=== PATIENT | male | born 1965 | race Two or more races ===

== ENCOUNTER 2019-11-19 19:31 | Outpatient (REF) | payer MEDICAID, SELFPAY | END 2019-11-19 19:32 | disposition home or self-care (01) | LOC: HO.MRI 19:31 | PROVIDERS: Visit Provider Emergency Medicine | DX: M48.061 Spinal stenosis, lumbar region without neurogenic claudication (principal) ==

== ENCOUNTER → 2021-02-15 15:00 | Outpatient (BNVA) | payer MEDICAID, SELFPAY | PROVIDERS: PCP Nurse Practitioner Family; Referring Provider Nurse Practitioner Family; Visit Provider Surgery | DX: K40.90 Unilateral inguinal hernia, without obstruction or gangrene, not specified as recurrent (principal) | CPT/HCPCS: 99202 ==

== ENCOUNTER 2021-02-24 | Outpatient (REF) | payer MEDICAID, SELFPAY ==
--- NOTE | ~2021-02-24 | CT_ITS ---
EXAMINATION: CT CHEST SCREENING CLINICAL INFORMATION: Nicotine dependence. COMPARISON: None. TECHNIQUE: Multidetector volumetric CT imaging of the chest is performed without contrast using low dose technique. Additional 2-D coronal and sagittal reformatted images and axial 3-D maximum intensity projection (MIP) images are generated on the CT workstation. This CT examination was performed using dose optimization techniques as appropriate, variously including the following: *Automated exposure control *Adjustment of mA and/or kV according to patient size (this includes techniques or standardized protocols for targeted exams where dose is matched to indication/reason for exam; i.e. extremities or head) *Use of iterative reconstruction technique DLP: 60 mGy-cm FINDINGS: LUNGS: The lungs are well expanded and clear of acute pneumonic consolidation. A 1 mm pulmonary nodule is seen in the left lower lobe axial image 315/6 in the lingula axial image 286/6. No additional pulmonary nodules, mass or ground-glass density. MEDIASTINUM: The thyroid lobes are symmetric and normal. The central trachea and bronchi are widely patent. Heart size and the great vessels are normal caliber. No abnormal sized mediastinal or hilar lymph nodes seen. There is no pericardial effusion. PLEURA: There is no pleural effusion. No pleural mass or thickening. AXILLA: No lymphadenopathy. UPPER ABDOMEN: Unremarkable. OSSEOUS STRUCTURES: No lytic or sclerotic process seen. There is mild ventral spondylosis. CT/CT lung screening IMPRESSION: Punctate 1-2 nodules.. ASSESSMENT: Lung-RADS category 2: Benign RECOMMENDATION: Low-dose annual CT chest
== END 2021-02-24 00:01 ==
LOC: HO.CT
PROVIDERS: PCP Nurse Practitioner Family; Visit Provider Physician Assistant Medical
DX: F17.210 Nicotine dependence, cigarettes, uncomplicated (principal)
CPT/HCPCS: 71271; G0296

== ENCOUNTER 2021-03-14 10:19 | Day surgery (SDC) | payer MEDICAID, SELFPAY ==
[2021-03-08 15:41] VITALS: BMI 20.7
--- NOTE | 2021-03-13 10:00 | P.CONAN_ITS ---
Documented by User: Luisa Vail NP 03/13/21 10:21 HPI - Anesthesia Eval Consult details Narrative: 55yo M for Left Hernia Repair Inguinal with mesh PMFSH Active Problems Active Problems: All Active Problems (Updated 02/24/21 @ 13:18 by Sravanthi Feldman PA-C) Personal history of nicotine dependence (Acute) Left inguinal hernia (Acute) Chronic back pain (Acute) Past Medical History Medical History (Updated 03/14/21 @ 10:28 by Sarika Rodas) Benign neoplasm of left kidney Chronic back pain Depression History of COVID-19 (~02/2020) History of substance abuse History of type C viral hepatitis Left inguinal hernia Personal history of nicotine dependence Seizure disorder Superior mesenteric artery stenosis Thrombocytopenia Tubular adenoma of colon (~2017) Surgical History Surgical History (Updated 02/24/21 @ 13:07 by Sravanthi Feldman PA-C) History of cholecystectomy (~2000) History of colonoscopy (~2017) History of esophagogastroduodenoscopy (EGD) (~2017) History of excision of pilonidal cyst (~2006) History of liver biopsy (~2000) History of lumbar discectomy (~2007) History of throat surgery (~1998) Social History Social History (Updated 02/24/21 @ 13:17 by Sravanthi Feldman PA-C) Alcohol intake: current Alcohol intake frequency: does not drink Patient Tobacco Use Status: Current everyday Tobacco user Tobacco use type: Cigarette Cigarettes Per Day: 10 Years Smoked: 40 Smoked in Last 30 Days: Yes Use of substances other than those prescribed or required for medical reasons: No Substance Use Type: Marijuana Are you DNR?: No Advance Directives: Yes Advance Directives on File: Yes Advance Directives Date on File: 11/13/19 Meds Allergies Allergy/AdvReac Type Severity Reaction Status Date / Time lithium [[place]] Allergy Severe RASH, Verified 03/14/21 10:27 ANAPHYLAXIS, swelling, peeling skin, scabs Interferon, Allergy Intermediate swelling, Verified 03/14/21 10:27 patient not sure o peeling skin nabumetone Allergy Intermediate swelling, Verified 03/14/21 10:27 peeling skin Interferons Allergy Mild SWELLING Verified 03/14/21 10:27 naproxen Allergy Mild confusion, Verified 03/14/21 10:27 [Naproxen] swelling, peeling skin Home Medications Medication Instructions Recorded Confirmed Last Taken Type divalproex 500 mg 500 mg PO 02/15/21 03/08/21 Unknown History tablet,extended BEDTIME release 24 hr doxepin 100 mg 100 mg PO 02/15/21 03/08/21 Unknown History capsule BEDTIME gabapentin 100 mg 200 mg PO TID 02/15/21 03/08/21 Unknown History capsule trazodone 150 mg 150 mg PO 02/15/21 03/08/21 Unknown History tablet BEDTIME Exam Exam Date and Time: March 13, 2021 1000 Height,Weight and Vital Signs: Height 6 ft 1 in Weight 71.214 kg Assessment and Plan Assessment Anesthesia Assessment: Chart Reviewed Documented by User: Carlos Frost 03/14/21 12:10 HPI - Anesthesia Eval Consult details Narrative: 55yo M for Left Hernia Repair Inguinal with mesh CAD s/p stent seizures , last seizure years ago . tingling and numbness b/l Lower extremites hep C . s/p treatment . [facility] Past Medical History Medical History (Updated 03/14/21 @ 10:28 by Sarika Rodas) Benign neoplasm of left kidney Chronic back pain Depression History of COVID-19 (~02/2020) History of substance abuse History of type C viral hepatitis Left inguinal hernia Personal history of nicotine dependence Seizure disorder Superior mesenteric artery stenosis Thrombocytopenia Tubular adenoma of colon (~2017) Family History Family history of problems with anesthesia: No Surgical History Surgical History (Updated 02/24/21 @ 13:07 by Sravanthi Feldman PA-C) History of cholecystectomy (~2000) History of colonoscopy (~2017) History of esophagogastroduodenoscopy (EGD) (~2017) History of excision of pilonidal cyst (~2006) History of liver biopsy (~2000) History of lumbar discectomy (~2007) History of throat surgery (~1998) History of Problems with Anesthesia: No Social History Social History (Updated 02/24/21 @ 13:17 by Sravanthi Feldman PA-C) Alcohol intake: current Alcohol intake frequency: does not drink Patient Tobacco Use Status: Current everyday Tobacco user Tobacco use type: Cigarette Cigarettes Per Day: 10 Years Smoked: 40 Smoked in Last 30 Days: Yes Use of substances other than those prescribed or required for medical reasons: No Substance Use Type: Marijuana Are you DNR?: No Advance Directives: Yes Advance Directives on File: Yes Advance Directives Date on File: 11/13/19 Meds Allergies Allergy/AdvReac Type Severity Reaction Status Date / Time lithium [[place]] Allergy Severe RASH, Verified 03/14/21 10:27 ANAPHYLAXIS, swelling, peeling skin, scabs Interferon, Allergy Intermediate swelling, Verified 03/14/21 10:27 patient not sure o peeling skin nabumetone Allergy Intermediate swelling, Verified 03/14/21 10:27 peeling skin Interferons Allergy Mild SWELLING Verified 03/14/21 10:27 naproxen Allergy Mild confusion, Verified 03/14/21 10:27 [Naproxen] swelling, peeling skin Home Medications Medication Instructions Recorded Confirmed Last Taken Type divalproex 500 mg 500 mg PO 02/15/21 03/08/21 Unknown History tablet,extended BEDTIME release 24 hr doxepin 100 mg 100 mg PO 02/15/21 03/08/21 Unknown History capsule BEDTIME gabapentin 100 mg 200 mg PO TID 02/15/21 03/08/21 Unknown History capsule trazodone 150 mg 150 mg PO 02/15/21 03/08/21 Unknown History tablet BEDTIME Exam Airway Mallampati Class: III TM Dist: >3cm Partial: Upper and Lower Loose/Missing/Broken Teeth: Yes (Poor dentation ) Heart: rrr Lungs: bl breath Assessment and Plan Assessment Anesthesia Assessment: Anesthesia Plan Discussed Final Anesthetic Review Family History of Problems with Anesthesia: No History of Problems with Anesthesia: No NPO: Yes ASA Class: III Final Preanesthetic Review: Meds/Allgs Chart Reviewed, Consent Obtained/Reviewed and Anes Risks/Benef Reviewed Patient Risk: Intermediate Procedure Risk: Intermediate Anesthetic Plan Anesthetic Plan: GA Disposition: Standard PACU
[2021-03-14] VITALS (17 sets, daily range): BP systolic 118–138; BP diastolic 51–68; PULSE 64–72; RESP 15–18; TEMP 36.2–36.6; O2SAT 98–100; BMI 21.1
[2021-03-14] MEDS: Lactated Ringers 1,000 ML 100 ML IVCONT (10:53)
--- NOTE | 2021-03-14 11:36 | MHC.SHP ---
Pre-Procedural Eval Section A Date of Service: 03/14/21 The patient is an INPATIENT: No Changes since office visit: No Cold of Flu in the past 2 weeks, No New Medical Problems, No Changes in Medication and No Patient answered all questions The History & Physical has been completed within 30 days and I have reviewed it.: Yes Section B Chief Complaint: inguinal hernia Allergies: Allergies Allergy/AdvReac Type Severity Reaction Status Date / Time lithium [[place]] Allergy Severe RASH, Verified 03/14/21 10:27 ANAPHYLAXIS, swelling, peeling skin, scabs Interferon, patient not sure Allergy Intermediate swelling, Verified 03/14/21 10:27 o peeling skin nabumetone Allergy Intermediate swelling, Verified 03/14/21 10:27 peeling skin Interferons Allergy Mild SWELLING Verified 03/14/21 10:27 naproxen [Naproxen] Allergy Mild confusion, Verified 03/14/21 10:27 swelling, peeling skin Plan I have reviewed the history and physical and performed a pertinent physical examination on my patient. No changes have occurred unless specified.
--- NOTE | 2021-03-14 13:03 | W.PM.OPN ---
Operative Note Operative Note Date of Service: 03/14/21 Narrative: Preop diagnosis: Left inguinal hernia Postop diagnosis: Left inguinal hernia indirect Procedure: Repair of a left inguinal hernia with mesh Surgeon: Tucker Duarte MD curriculum assistant principal: JESSICA Bower The patient is a 55-year-old male with a reducible mass on the left groin consistent with an inguinal hernia. In view of symptoms he wanted to proceed with repair. He understood the technique of repair with mesh. He was aware of the risks, benefits, and alternatives and had given consent He was brought to the operating room placed supine on table under anesthesia via laryngeal mask airway. The left groin area was prepped and draped in the usual sterile fashion. A surgical time-out was done. The patient received cefazolin 2 g IV preoperatively. I infiltrated the planned line of incision with lidocaine 1%. I made a short incision in the skin along an imaginary line from the anterior superior iliac spine to the pubic ramus using blade 15. This was carried down through the full-thickness of the skin and subcutaneous fat using electrocautery down to the external oblique aponeurosis. I bluntly dissected the external oblique aponeurosis to define the external ring. I made an incision on the external oblique aponeurosis to enter the canal. I applied hemostats to the vide edges of the aponeurosis. I bluntly dissected the underside of the aponeurosis to create a pocket for the mesh. I then proceeded to bluntly dissect the spermatic cord and its contents using my index finger until I was able to pass a Zev drain around this. This Zev drain was used for retraction. If I the vas deferens and the accompanying vessels and this were protected during the rest of the dissection By dissecting the cord, I was able to identify the hernia sac. This was from the rest of the cord contents down through the defect which was through the internal ring. This was therefore an indirect hernia I was able to reduce the hernia completely. I reinforced this internal ring with a small-sized Bard PerFix plug. The plug was secured with Prolene 2-0 sutures to shelving edge of the inguinal meant laterally, and the internal oblique superiorly and medially using the inner leaves of the mesh. I also reinforced the floor of the canal with a keyhole mesh. The tails of the mesh were passed around the cord the level of the internal ring and were together with Prolene 2 sutures. I flattened the mesh on the floor. I secured this to the internal oblique superiorly and medially, the shelving edge of the inguinal ligament laterally, and the pubic ramus inferomedially. I then irrigated. I observed for hemostasis. Once hemostasis was ensured, I proceeded then appose the subcutaneous layer with Dexon 3-0 interrupted sutures. Skin closure was achieved with Dexon 4-0 subcuticular running stitch. The area was infiltrated with Marcaine 0.5% for postop analgesia. Steri-Strips and dressings were applied. The procedure was then completed The patient tolerated the procedure well. There were no complications noted. Initial and final counts of sponges and instruments were correct. Estimated blood loss was about 5 cc. The patient was extubated without difficulty and transferred to the recovery room with stable vital signs.
[2021-03-14] MEDS: HYDROmorphone HCl 0.5 MG/0.5 ML SYRINGE 0.25 MG IVPUSH ×4 (13:37→14:15)
[2021-03-14] MEDS: oxyCODONE HCl Immed Release 5 MG TABLET 10 MG PO (14:49)
== END 2021-03-14 15:40 | disposition home or self-care (01) ==
PROVIDERS: PCP Nurse Practitioner Family; Visit Provider Surgery
PROC: (CPT 49505; principal; 2021-03-14 11:10)
DX: K40.90 Unilateral inguinal hernia, without obstruction or gangrene, not specified as recurrent (principal); M54.9 Dorsalgia, unspecified; G89.29 Other chronic pain; K55.1 Chronic vascular disorders of intestine; G40.909 Epilepsy, unspecified, not intractable, without status epilepticus; D69.6 Thrombocytopenia, unspecified; Z79.899 Other long term (current) drug therapy; Z88.8 Allergy status to other drugs, medicaments and biological substances; F17.210 Nicotine dependence, cigarettes, uncomplicated
CPT/HCPCS: 49505; C1781; J0131; J0690; J1100; J1170; J2250; J2370; J2405; J3010

== ENCOUNTER → 2021-04-10 11:03 | Outpatient (BNVA) | payer MEDICAID, SELFPAY | PROVIDERS: PCP Nurse Practitioner Family; Referring Provider Nurse Practitioner Family; Visit Provider Surgery | DX: Z48.815 Encounter for surgical aftercare following surgery on the digestive system (principal); Z87.19 Personal history of other diseases of the digestive system | CPT/HCPCS: 99212 ==

== ENCOUNTER 2021-04-20 09:13 | Outpatient (REF) | payer MEDICAID, SELFPAY ==
--- NOTE | ~2021-04-20 | US_ITS ---
EXAMINATION: US COMPLETE ABDOMEN WITH LIVER ELASTOGRAPHY CLINICAL INFORMATION: Chronic hepatitis C. Liver fibrosis. COMPARISON: 09/09/2018 TECHNIQUE: Real-time imaging of the abdominal viscera. Noninvasive ultrasound liver fibrosis assessment is performed using Alec ElastPQ point quantification shear wave elastography (2D-SWE) with a C5-2 MHz transducer. Multiple elastography samples are obtained. FINDINGS: PANCREAS: Normal. ABDOMINAL AORTA: The proximal, middle, and distal aortic segments are normal in caliber. INFERIOR VENA CAVA: Visualized portions are normal. LIVER: The liver demonstrates normal size and Contour with increased echogenicity. No focal lesion or intrahepatic biliary duct dilatation. The right lobe measures 13.1 cm in length. The left lobe measures 8.9 cm in length. Portal flow is towards the liver (hepatopetal). Shear wave liver elastography median stiffness is 1.52 m/s (reference: normal median stiffness is 1.3 m/s or less). IQR/median stiffness to assess sampling precision is 0.05 (reference: good quality data set is IQR/median stiffness of 0.15 or less). GALLBLADDER: Cholecystectomy. COMMON BILE DUCT: Normal in caliber measuring 0.5 cm in diameter. RIGHT KIDNEY: Midpole 1 cm simple cyst. There is a 1.3 cm midpole complex cyst with septation and irregular Contour. No Doppler vascularity.. No hydronephrosis. No renal calculi. The kidney measures 11.3 cm in maximum dimension. LEFT KIDNEY: Normal. No hydronephrosis. No renal calculi or focal parenchymal lesions. The kidney measures 12.8 cm in maximum dimension. SPLEEN: Normal. The spleen measures 11.1 cm in maximum dimension. FREE FLUID: None. US/US abdomen comp w elastography IMPRESSION: 1. Hepatic steatosis. 2. Liver elastography: In the absence of other known clinical signs, measurements rule out compensated advanced chronic liver disease. If there are known clinical signs, further testing may be needed for confirmation. 3. Complex 1.3 cm right renal cyst. This is not seen on previous. With the appearance this is likely Bosniak 2F. REFERENCE: Society of Radiologists in Ultrasound Liver Stiffness Thresholds (2020): LIVER STIFFNESS THRESHOLDS: *Liver Stiffness equal or less than 1.3 m/s: High probability of being normal. *Liver Stiffness less than 1.7 m/s: In the absence of other known clinical signs, rules out compensated advanced chronic liver disease. *Liver Stiffness 1.7-2.1 m/s: Suggestive of compensated advanced chronic liver disease but need further test for confirmation. *Liver Stiffness over 2.1 m/s: Rules in compensated advanced chronic liver disease. *Liver Stiffness over 2.4 m/s: Suggestive of clinically significant portal hypertension. QUALITY OF DATA SET: *IQR/Median value equal or less than 0.15 implies a quality data set. *IQR/Median value over 0.15 implies a poor quality data set. SIGNIFICANT CHANGE FROM PRIOR EXAM: Significant change if liver stiffness measurement is 10% or greater from prior exam. OTHER CONSIDERATIONS: The stage of liver fibrosis may be overestimated in the setting of acute hepatitis, liver inflammation, elevated liver function tests, hepatic vascular congestion, obstructive cholestasis, non-fasting state, and infiltrative diseases such as amyloidosis and lymphoma. In some patients with NAFLD, the liver stiffness thresholds for compensated advanced chronic liver disease may be lower. In causes other than viral hepatitis and NAFLD, liver stiffness thresholds are not well established.
[2021-04-20 10:17] LABS: MANUAL DIFF FLAG NO
[2021-04-20 10:33] LABS: Basophils Percent Auto 0.2 % (0-2); Hemoglobin 13.9 g/dl (14.0-18.0); Imm Gran Abs Auto 0.04 X10*3/uL (0.00-0.03); Imm Gran Pct Auto 0.8 % (0.0-0.4); Mean Corpuscular HGB Conc 33.1 g/dl (31.0-36.0); Mean Corpuscular Hemoglobin 32.2 pg (27.0-33.0); Mean Corpuscular Volume 97.2 fL (80.0-98.0); Mean Platelet Volume 9.3 fL (9.4-12.4); Monocytes Absolute Auto 0.5 X10*3/uL (0.1-1.2); Monocytes Percent Auto 8.5 % (2-11); Neutrophils Absolute Auto 2.8 x10*3/uL (2.0-8.3); Neutrophils Percent Auto 52.5 % (45-73); Platelet Count 109 X10*3/uL (160-400); Red Blood Count 4.32 X10*6/uL (4.60-5.80); Red Cell Distribution Width 12.7 % (11.0-16.0); White Blood Count 5.3 X10*3/uL (4.8-10.8)
[2021-04-20 10:37] LABS: INTERNATIONAL NORM RATIO 1.1 (0.9-1.1)
[2021-04-20 11:19] LABS: Alanine Aminotransferase 13 U/L (0-40); Albumin Level 4.5 g/dL (3.5-5.0); Alkaline Phosphatase 60 U/L (39-117); Aspartate Amino Transferase 18 U/L (5-37); Bilirubin Direct 0.3 mg/dL (0.0-0.5); Bilirubin Total 0.7 mg/dL (0.0-1.0); Total Protein 7.3 g/dL (6.5-8.0)
[2021-04-24 20:21] LABS: HCV Log PCR <1.18 NOT DETECTED Log IU/mL (NOT DETECTED); HepC Viral Load <15 NOT DETECTED IU/mL (NOT DETECTED)
[2021-04-25 13:26] LABS: Alpha Fetoprotein 1.9 ng/mL (<6.1)
[2021-04-25 15:22] LABS: FIB-ALT 12 U/L (9-46); FIB-Alpha-2-Macroglobulin 448 mg/dL (106-279); FIB-Apolipoprotein A1 157 mg/dL (94-176); FIB-GGT 29 U/L (3-85); FIB-Haptoglobin 79 mg/dL (43-212); FIB-Total Bilirubin 0.6 mg/dL (0.2-1.2); Liver Fibrosis Score 0.68; Liver Fibrosis Stage F3; Nec Inflam Act Grade A0; Nec Inflam Act Score 0.06
== END 2021-04-20 09:14 | disposition home or self-care (01) ==
LOC: HO.US 09:13
PROVIDERS: PCP Nurse Practitioner Family; Visit Provider Internal Medicine
DX: B18.2 Chronic viral hepatitis C (principal); K74.00 Hepatic fibrosis, unspecified
CPT/HCPCS: 36415; 76705; 76981; 80076; 81596; 82105; 85025; 85610; 87522

== ENCOUNTER 2021-05-19 07:46 | Day surgery (SDC) | payer MEDICAID, SELFPAY ==
[2021-04-21 13:47] VITALS: BMI 21.1
--- NOTE | 2021-05-18 11:57 | HO.ANESPROP2 ---
Documented by User: Luisa Vail NP 05/18/21 11:59 HPI - Anesthesia Eval Consult details Narrative: 56yo M for Colonoscopy s/p ing hernia repair 03/2021 with GA-LMA 5 PMFSH Active Problems Active Problems: All Active Problems (Updated 04/21/21 @ 13:50 by Claudia Hopkins, RN) Personal history of nicotine dependence (Acute) Left inguinal hernia (Acute) Chronic back pain (Acute) Past Medical History Medical History (Updated 04/21/21 @ 13:50 by Claudia Hopkins, RN) Benign neoplasm of left kidney Chronic back pain Depression History of COVID-19 (~02/2020) History of substance abuse History of type C viral hepatitis Left inguinal hernia Personal history of nicotine dependence Seizure disorder Superior mesenteric artery stenosis Thrombocytopenia Tubular adenoma of colon (~2017) Family History Family history of problems with anesthesia: No Surgical History Surgical History History of cholecystectomy (~2000) History of colonoscopy (~2017) History of coronary artery stent placement History of esophagogastroduodenoscopy (EGD) (~2017) History of excision of pilonidal cyst (~2006) History of left inguinal hernia repair (~03/14/21) History of liver biopsy (~2000) History of lumbar discectomy (~2007) History of throat surgery (~1998) History of Problems with Anesthesia: No Social History Social History Alcohol intake: current Alcohol intake frequency: does not drink Patient Tobacco Use Status: Current everyday Tobacco user Tobacco use type: Cigarette Cigarettes Per Day: 6 Years Smoked: 40+ Use of substances other than those prescribed or required for medical reasons: Yes Substance Use Type: Marijuana Substance Use Frequency: Daily Are you DNR?: No Advance Directives: Yes Advance Directives Information Provided: Yes Advance Directives on File: Yes Advance Directives Date on File: 11/13/19 Meds Allergies Allergy/AdvReac Type Severity Reaction Status Date / Time lithium [[place]] Allergy Severe RASH, Verified 04/10/21 11:19 ANAPHYLAXIS, swelling, peeling skin, scabs Interferon, patient not sure Allergy Intermediate swelling, Verified 04/10/21 11:19 o peeling skin nabumetone Allergy Intermediate swelling, Verified 04/10/21 11:19 peeling skin Interferons Allergy Mild SWELLING Verified 04/10/21 11:19 naproxen [Naproxen] Allergy Mild confusion, Verified 04/10/21 11:19 swelling, peeling skin Home Medications Medication Instructions Recorded Confirmed Last Taken Type divalproex 500 mg tablet,extended 500 mg PO BEDTIME 02/15/21 04/21/21 Unknown History release 24 hr doxepin 100 mg capsule 100 mg PO BEDTIME 02/15/21 04/21/21 Unknown History gabapentin 100 mg capsule 200 mg PO TID 02/15/21 04/21/21 Unknown History trazodone 150 mg tablet 150 mg PO BEDTIME 02/15/21 04/21/21 Unknown History Exam Exam Date and Time: May 18, 2021 1157 Height,Weight and Vital Signs: Height 6 ft 1 in Weight 72.575 kg Narrative Narrative: Laboratory Tests 04/20/21 10:16 WBC 5.3 Hgb 13.9 L Hct 42.0 Plt Count 109 L Assessment and Plan Assessment Anesthesia Assessment: Chart Reviewed Final Anesthetic Review Family History of Problems with Anesthesia: No History of Problems with Anesthesia: No Documented by User: Carlos Frost MD 05/19/21 10:01 HPI - Anesthesia Eval Consult details Narrative: 56yo M for Colonoscopy s/p hernia repair 03/2021 with GA-LMA 5 CAD s/p stent?, no chest pain currently seizures , last seizure years ago .? tingling and numbness b/l Lower extremites?with chronic back pain . hep C . s/p treatment .? [facility] Past Medical History Medical History (Updated 04/21/21 @ 13:50 by Claudia Hopkins RN) Benign neoplasm of left kidney Chronic back pain Depression History of COVID-19 (~02/2020) History of substance abuse History of type C viral hepatitis Left inguinal hernia Personal history of nicotine dependence Seizure disorder Superior mesenteric artery stenosis Thrombocytopenia Tubular adenoma of colon (~2017) Surgical History Surgical History History of cholecystectomy (~2000) History of colonoscopy (~2017) History of coronary artery stent placement History of esophagogastroduodenoscopy (EGD) (~2017) History of excision of pilonidal cyst (~2006) History of left inguinal hernia repair (~03/14/21) History of liver biopsy (~2000) History of lumbar discectomy (~2007) History of throat surgery (~1998) Social History Social History Alcohol intake: current Alcohol intake frequency: does not drink Patient Tobacco Use Status: Current everyday Tobacco user Tobacco use type: Cigarette Cigarettes Per Day: 6 Years Smoked: 40+ Use of substances other than those prescribed or required for medical reasons: Yes Substance Use Type: Marijuana Substance Use Frequency: Daily Are you DNR?: No Advance Directives: Yes Advance Directives Information Provided: Yes Advance Directives on File: Yes Advance Directives Date on File: 11/13/19 Meds Allergies Allergy/AdvReac Type Severity Reaction Status Date / Time lithium [[place]] Allergy Severe RASH, Verified 04/10/21 11:19 ANAPHYLAXIS, swelling, peeling skin, scabs Interferon, patient not sure Allergy Intermediate swelling, Verified 04/10/21 11:19 o peeling skin nabumetone Allergy Intermediate swelling, Verified 04/10/21 11:19 peeling skin Interferons Allergy Mild SWELLING Verified 04/10/21 11:19 naproxen [Naproxen] Allergy Mild confusion, Verified 04/10/21 11:19 swelling, peeling skin Home Medications Medication Instructions Recorded Confirmed Last Taken Type divalproex 500 mg tablet,extended 500 mg PO BEDTIME 02/15/21 04/21/21 Unknown History release 24 hr doxepin 100 mg capsule 100 mg PO BEDTIME 02/15/21 04/21/21 Unknown History gabapentin 100 mg capsule 200 mg PO TID 02/15/21 04/21/21 Unknown History trazodone 150 mg tablet 150 mg PO BEDTIME 02/15/21 04/21/21 Unknown History Exam Airway Mallampati Class: II TM Dist: >3cm Neck ROM: Full Denture: Upper and Lower Loose/Missing/Broken Teeth: Yes Heart: RRR Lungs: b/l breath sounds Assessment and Plan Assessment Anesthesia Assessment: Anesthesia Plan Discussed Final Anesthetic Review NPO: Yes ASA Class: II Final Preanesthetic Review: Meds/Allgs Chart Reviewed, Consent Obtained/Reviewed and Anes Risks/Benef Reviewed Patient Risk: Intermediate Procedure Risk: Intermediate Anesthetic Plan Anesthetic Plan: MAC: Disposition: Standard PACU
[2021-05-19 09:02] VITALS: BP 128/57; PULSE 63; RESP 18; TEMP 36.9; O2SAT 98
[2021-05-19] MEDS: Lactated Ringers 1,000 ML 100 ML IVCONT (09:12)
[2021-05-19 10:41] VITALS: BP 98/49; PULSE 60; RESP 16; TEMP 36.1; O2SAT 99
--- NOTE | 2021-05-19 10:44 | P.BOP_ITS ---
Brief Operative Note Date of Service: 05/19/21 Pre-op diagnosis: Screening Post-op diagnosis: other (Colon polyps) Procedure: Colonoscopy to the cecum and TI with cold snare polypectomy of AC polyp, and bx/removal of polyps Surgeon: Mir Sanford Anesthesia: MAC Was an Certified Master Safecracker used for this Procedure?: No Estimated blood loss (mL): 2.0 Pathology: other (A. Transverse colon polyps B. Ascending colon polyps) Condition: stable Disposition: PACU
[2021-05-19 10:56] VITALS: BP 110/53; PULSE 61; RESP 18; TEMP 36.2; O2SAT 98
--- NOTE | 2021-05-19 13:27 | OP_ITS ---
SURGEON: Mir Sanford MD INDICATIONS: The patient presents for evaluation of colorectal cancer screening and personal history of tubular adenoma of the colon. Full consent has been obtained from him for this, including risks of bleeding and perforation. PREOPERATIVE DIAGNOSIS: POSTOPERATIVE DIAGNOSIS: PROCEDURE PERFORMED: Colonoscopy to cecum and terminal ileum with biopsy and removal of polyps, and cold snare polypectomy. ESTIMATED BLOOD LOSS: COMPLICATIONS: ANESTHESIA: Monitored anesthesia care. ASSISTANTS: SPECIMENS: PREOPERATIVE DIAGNOSES: Colorectal cancer screening and personal history of tubular adenoma of the colon. POSTOPERATIVE DIAGNOSES: Colorectal cancer screening and personal history of tubular adenoma of the colon, colon polyps, diverticulosis and internal hemorrhoids. DESCRIPTION OF PROCEDURE: The patient was placed in left lateral decubitus position. The digital rectal exam revealed no abnormalities. The Olympus video pediatric colonoscope was entered into the rectum and advanced easily to the cecum. Once in the cecum, I did identify normal-appearing cecal pouch with appendiceal orifice and a normal-appearing ileocecal valve. The entire appendiceal orifice was well visualized and appeared normal. The terminal ileum was cannulated and appeared normal. The scope was withdrawn back in the colon. The cecum appeared normal. The scope was slowly withdrawn assessing all mucosal surfaces carefully. Preparation was excellent. In the ascending colon was a flat 3 or 4 mm polyp, which was removed with cold biopsy forceps. Also, in the ascending colon was an approximately 6 mm polyp, which was removed by cold snare polypectomy and recovered by suction. The polypectomy site appeared to be free of any residual polyp and no sign of any significant bleeding. In the transverse colon were 2 flat approximately 4 mm polyps, which were each biopsied and completely removed with cold biopsy forceps. I did not visualize any other polyps, colitis, or angiodysplasia. There was a mild amount of sigmoid diverticulosis. In the rectum, scope was retroflexed visualizing internal hemorrhoids, but no other pathology. The rectal mucosa appeared normal. The scope was straightened and withdrawn from the patient. He tolerated the procedure well and was returned to recovery area in stable condition. IMPRESSION: 1. Colon polyps, status post cold snare polypectomy, and biopsy removal. 2. Diverticulosis. 3. Internal hemorrhoids. PLAN: The results of the pathology will be checked. I would recommend a repeat colonoscopy in 5 years for further screening. He was advised to see me in 1 year for followup of the previous history of chronic hepatitis C. He was advised not to use any aspirin and NSAIDs for 1 week. MD HILARIO Fallon/MATILDE / [id number]
== END 2021-05-19 11:30 | disposition home or self-care (01) ==
PROVIDERS: PCP Nurse Practitioner Family; Visit Provider Internal Medicine
PROC: 0DJD8ZZ Inspection of Lower Intestinal Tract, Via Natural or Artificial Opening Endoscopic (ICD-10-PCS; CPT 45378; principal; 2021-05-19 09:10)
DX: Z12.11 Encounter for screening for malignant neoplasm of colon (principal); Z86.010 Personal history of colon polyps; D12.2 Benign neoplasm of ascending colon; D12.3 Benign neoplasm of transverse colon; K57.30 Diverticulosis of large intestine without perforation or abscess without bleeding; K64.8 Other hemorrhoids; K74.00 Hepatic fibrosis, unspecified; B18.2 Chronic viral hepatitis C; G40.909 Epilepsy, unspecified, not intractable, without status epilepticus; Z79.899 Other long term (current) drug therapy; Z90.49 Acquired absence of other specified parts of digestive tract; Z98.890 Other specified postprocedural states; F17.210 Nicotine dependence, cigarettes, uncomplicated
CPT/HCPCS: 45385; 45380; 88305

== ENCOUNTER 2022-03-06 15:30 | Outpatient (REF) | payer MEDICAID, SELFPAY ==
--- NOTE | ~2022-03-06 | CT_ITS ---
EXAMINATION: CT CHEST SCREENING CLINICAL INFORMATION: Nicotine dependence. COMPARISON: CT chest 02/24/2021. TECHNIQUE: Multidetector volumetric CT imaging of the chest is performed without contrast using low dose technique. Additional 2D coronal and sagittal reformatted images and axial 3D maximum intensity projection (MIP) images are generated on the CT workstation. This CT examination was performed using dose optimization techniques as appropriate, variously including the following: *Automated exposure control *Adjustment of mA and/or kV according to patient size (this includes techniques or standardized protocols for targeted exams where dose is matched to indication/reason for exam; i.e. extremities or head) *Use of iterative reconstruction technique DLP: 179 mGy-cm. FINDINGS: LUNGS: The lungs are well expanded without any acute pneumonic consolidation. Besides small tiny nodule in the left lower lobe there are no additional nodules seen. No mass or ground-glass density. No atelectasis. MEDIASTINUM: The mediastinum is normal. CORONARY ARTERY CALCIFICATION: None visualized on this study. PLEURA: There is no pleural effusion. No pleural mass or thickening. AXILLA: No lymphadenopathy. UPPER ABDOMEN: Visualized liver, spleen, pancreas and bilateral adrenal glands are unremarkable. OSSEOUS STRUCTURES: No aggressive lytic or sclerotic process seen. CT/CT lung screening IMPRESSION: Punctate 1 mm nodules without any significant change from previous exam. ASSESSMENT: Lung-RADS category 2: Benign. RECOMMENDATION: Low-dose annual CT chest.
== END 2022-03-06 15:31 | disposition home or self-care (01) ==
LOC: HO.CT 15:30
PROVIDERS: PCP Nurse Practitioner Family; Visit Provider Physician Assistant Medical
DX: Z12.2 Encounter for screening for malignant neoplasm of respiratory organs (principal); F17.210 Nicotine dependence, cigarettes, uncomplicated
CPT/HCPCS: 71271

== ENCOUNTER 2022-03-09 09:28 | Outpatient (REF) | payer MEDICAID, SELFPAY ==
--- NOTE | ~2022-03-09 | XR_ITS ---
EXAMINATION: XR SHOULDER , LEFT CLINICAL INFORMATION: Pain COMPARISON: None available at the time of this dictation. TECHNIQUE: AP external rotation, Grashey, scapular Y, and axillary views of the shoulder. FINDINGS: BONES: There is no fracture or dislocation, no osteolytic or osteoblastic lesion. JOINTS: Glenohumeral joint is properly positioned. There is mild degenerative osteoarthritis of the acromioclavicular joint. SOFT TISSUE AND INCLUDED LUNG: Normal. XR/XR shoulder LT min 2V IMPRESSION: Except for mild DJD of the AC joint, exam is normal.
== END 2022-03-09 09:29 | disposition home or self-care (01) ==
LOC: HO.XRAY 09:28
PROVIDERS: PCP Nurse Practitioner Primary Care; Visit Provider Nurse Practitioner Primary Care
DX: M79.602 Pain in left arm (principal); M25.512 Pain in left shoulder
CPT/HCPCS: 73030

== ENCOUNTER → 2022-07-31 12:27 | Outpatient (BNVA) | payer MEDICAID, SELFPAY | PROVIDERS: PCP Nurse Practitioner Primary Care; Visit Provider Orthopaedic Surgery | DX: M65.331 Trigger finger, right middle finger (principal); R20.0 Anesthesia of skin | CPT/HCPCS: 99202 ==

== ENCOUNTER 2022-08-16 09:25 | Day surgery (SDC) | payer MEDICAID, SELFPAY ==
--- NOTE | 2022-08-16 11:36 | MHC.SHP ---
Pre-Procedural Eval Section A Date of Service: 08/16/22 The patient is an INPATIENT: No Changes since office visit: No Cold of Flu in the past 2 weeks, No New Medical Problems, No Changes in Medication and No Patient answered all questions The History & Physical has been completed within 30 days and I have reviewed it.: Yes Section B Chief Complaint: Trigger finger, right middle finger Allergies: Allergies Allergy/AdvReac Type Severity Reaction Status Date / Time lithium [[place]] Allergy Severe RASH, Verified 07/31/22 12:51 ANAPHYLAXIS, swelling, peeling skin, scabs nabumetone Allergy Intermediate swelling, Verified 07/31/22 12:51 peeling skin Interferons Allergy Mild Swelling, Verified 07/31/22 12:51 peeling skin naproxen [Naproxen] Allergy Mild confusion, Verified 07/31/22 12:51 swelling, peeling skin Plan I have reviewed the history and physical and performed a pertinent physical examination on my patient. No changes have occurred unless specified. Time Spent With Patient Time: Total time managing care of this patient today ____ minutes.
--- NOTE | 2022-08-16 11:37 | W.PM.OPN ---
Operative Note Operative Note Date of Service: 08/16/22 Narrative: Operative Note Preop diagnosis: 1. Right middle finger Trigger finger Postop diagnosis: 1. Right middle finger Trigger finger Procedure: 1. Right little finger A1 tanner release Surgeon: Babita Camacho MD Anesthesia: local block using 1% lidocaine with epinephrine Findings: No locking or catching after A1 tanner release EBL: Less than 5 mL Tourniquet time: None Specimens: None Complications: None Disposition: Brought to recovery room in stable condition Plan: Follow-up for 10-14 days for wound check and suture removal Indications: The patient is 57 years old, with a right middle finger trigger finger that has been unresponsive to nonoperative management. The risks and benefits of operative treatment including but not limited to risk of damage to blood vessels, nerves, tendons, infection, persistent pain, persistent symptoms, recurrence or possible need for additional surgery were discussed with the patient and the patient wishes to proceed with surgery. Procedure: Once consent was obtained a local block was performed in the preop area using a combination of 1% lidocaine with epinephrine. The patient was then brought back to the operating suite and placed on the operative table in supine position. The right upper extremity was prepped and draped in a standard surgical fashion. Once assured that we had a good block, a 1.5 cm oblique incision was made centered over the A1 tanner of the right middle finger . The incision was made through the skin to the subcutaneous tissues using a #15 blade. Careful dissection was made down to the level of the A1 tanner using tenotomy scissors, with care being taken to protect the nearby neurovascular structures. A longitudinal incision was made in the A1 tanner 1st using a #15 blade, then using tenotomy scissors under direct visualization. The A1 tanner was noted to be thickened. Following our A1 tanner release, we no longer saw any locking or catching of the digit with flexion and extension. Once satisfied with our A1 tanner release the wound was copiously irrigated with normal saline and hemostasis was obtained with a brief period of local pressure. The skin edges were reapproximated with some 5.0 nylon suture material and a sterile dressing was applied. The patient appears to have tolerated the procedure well and with no complications. All digits were well vascularized at the conclusion of the case.
[2022-08-16 12:46] VITALS: BP 135/67; PULSE 80; RESP 16; O2SAT 99
== END 2022-08-16 12:47 | disposition home or self-care (01) ==
PROVIDERS: PCP Nurse Practitioner Primary Care; Visit Provider Orthopaedic Surgery
PROC: (CPT 26055; principal; 2022-08-16 11:30)
DX: M65.331 Trigger finger, right middle finger (principal); Z88.8 Allergy status to other drugs, medicaments and biological substances
CPT/HCPCS: 26055; J0171

== ENCOUNTER 2022-08-29 12:03 | Outpatient (AMB) | payer MEDICAID, SELFPAY ==
--- NOTE | 2022-08-29 12:15 | MHC.OFFVIS ---
Intake Intake Visit Reasons: PO R MF Trigger Release 08/16/22 AR Intake Note: Jonathon sadler 57 year old male presents today for a post operative right middle finger trigger release 08/16/22 AR. Sutures removed steris applied. Patient reports that he is doing well with no concerns. His locking and catching is no longer present, he is able to make a fist. Allergies lithium [[place]] Allergy (Severe, Verified 08/29/22 12:18) RASH, ANAPHYLAXIS, swelling, peeling skin, scabs nabumetone Allergy (Intermediate, Verified 08/29/22 12:18) swelling, peeling skin Interferons Allergy (Mild, Verified 08/29/22 12:18) Swelling, peeling skin naproxen [Naproxen] Allergy (Mild, Verified 08/29/22 12:18) confusion, swelling, peeling skin HPI PO R MF Trigger Release 08/16/22 AR HPI Details 57-year-old male who returns to the office today for post-op right middle finger trigger release, 08/16/[address] Camacho. He denies any locking or clicking and he is able to make a fist. He is doing well overall and has no concerns today. [facility] Medical History Benign neoplasm of left kidney Chronic back pain Depression History of COVID-19 (~02/2020) History of substance abuse History of type C viral hepatitis Left inguinal hernia Personal history of nicotine dependence Seizure disorder Superior mesenteric artery stenosis Thrombocytopenia Tubular adenoma of colon (~2017) Surgical History History of cholecystectomy (~2000) History of colonoscopy (~2017) History of coronary artery stent placement History of esophagogastroduodenoscopy (EGD) (~2017) History of excision of pilonidal cyst (~2006) History of left inguinal hernia repair (~03/14/21) History of liver biopsy (~2000) History of lumbar discectomy (~2007) History of throat surgery (~1998) Social History Alcohol intake: current Alcohol intake frequency: does not drink Patient Tobacco Use Status: Current everyday Tobacco user Tobacco use type: Cigarette Cigarettes Per Day: 6 Years Smoked: 40+ Substance Use Type: Marijuana Advance Directives Date on File: 11/13/19 Current occupational status: disabled Current occupation: rt hand Review of Systems Const All systems reviewed & are unremarkable except as noted in HPI and below Physical Exam Extrem Other: Right middle finger: Incision clean, dry and intact. No erythema or swelling. He has no catching or clicking. He can make full fist and fully extend his digits. NVI. Assessment & Plan Assessment & Plan (1) Status post trigger finger release: Code(s): Z98.890 - Other specified postprocedural states Plan Sutures removed today, steri strips applied. He will increase activity as tolerated. I advised caution with heavy lifting for the next 2 weeks. He will also be cautious with washing and not submerging underwater for long periods of time for the next week. If symptoms persist or worsens, patient will contact the office, otherwise follow-up as needed. Patient Instructions: Scribed for Gisela Grover PA-C, by Eddie Aguirre medical van driver, on 08/29/2022 at 12:30 PM EST. I, Gisela Grover PA-C, have personally reviewed and agree with the information entered by the scribe. Coding Level of Care Code Global (37733) Diagnoses Status post trigger finger release Z98.890
== END 2022-08-29 12:42 | disposition home or self-care (01) ==
PROVIDERS: PCP Nurse Practitioner Primary Care; Visit Provider Physician Assistant
DX: M65.331 Trigger finger, right middle finger (principal)
CPT/HCPCS: 99024

== ENCOUNTER → 2022-08-29 12:03 | Outpatient (BNVA) | payer MEDICAID, SELFPAY | PROVIDERS: PCP Nurse Practitioner Primary Care; Visit Provider Physician Assistant ==

== ENCOUNTER 2022-10-11 14:35 | Outpatient (REF) | payer MEDICAID, SELFPAY ==
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
== END 2022-10-11 14:36 | disposition home or self-care (01) ==
LOC: HO.NEURO 14:35
PROVIDERS: PCP Nurse Practitioner Primary Care; Visit Provider Orthopaedic Surgery
DX: Z13.89 Encounter for screening for other disorder (principal)

== ENCOUNTER 2022-10-22 10:07 | Outpatient (REF) | payer MEDICAID, SELFPAY ==
[2022-10-22 11:46] LABS: Basophils Percent Auto 0.2 % (0-2); Mean Platelet Volume 9.4 fL (9.4-12.4); PLT CLUMP 1; Red Cell Distribution Width 12.4 % (11.0-16.0); SCAN SMEAR FLAG 1
[2022-10-22 11:49] LABS: Hemoglobin 13.2 g/dl (14.0-18.0); Imm Gran Abs Auto 0.02 X10*3/uL (0.00-0.03); Imm Gran Pct Auto 0.5 % (0.0-0.4); Lymphocytes Absolute Auto 1.3 X10*3/uL (1.2-4.9); Lymphocytes Percent Auto 30.7 % (20-40); Mean Corpuscular Hemoglobin 31.4 pg (27.0-33.0); Mean Corpuscular Volume 95.2 fL (80.0-98.0); Monocytes Absolute Auto 0.5 X10*3/uL (0.1-1.2); Monocytes Percent Auto 11.1 % (2-11); Neutrophils Absolute Auto 2.5 x10*3/uL (2.0-8.3); Neutrophils Percent Auto 57.5 % (45-73)
[2022-10-22 11:52] LABS: INTERNATIONAL NORM RATIO 0.9 (0.9-1.1); Prothrombin Time 10.8 SEC (11.1-13.3)
[2022-10-22 12:21] LABS: MANUAL DIFF FLAG NO; Platelet Count 119 X10*3/uL (160-400); White Blood Count 4.3 X10*3/uL (4.8-10.8)
[2022-10-22 12:29] LABS: Alanine Aminotransferase 17 U/L (0-40); Albumin Level 3.9 g/dL (3.5-5.0); Alkaline Phosphatase 63 U/L (39-117); Aspartate Amino Transferase 22 U/L (5-37); Bilirubin Direct 0.3 mg/dL (0.0-0.5); Bilirubin Total 0.8 mg/dL (0.0-1.0); Total Protein 6.7 g/dL (6.5-8.0)
[2022-10-24 17:24] LABS: HCV Log PCR <1.18 NOT DETECTED Log IU/mL (NOT DETECTED); HepC Viral Load <15 NOT DETECTED IU/mL (NOT DETECTED)
[2022-10-26 11:49] LABS: Alpha Fetoprotein 2.1 ng/mL (<6.1)
[2022-10-26 16:28] LABS: FIB-ALT 15 U/L (9-46); FIB-Alpha-2-Macroglobulin 455 mg/dL (106-279); FIB-Apolipoprotein A1 171 mg/dL (94-176); FIB-GGT 29 U/L (3-85); FIB-Haptoglobin 82 mg/dL (43-212); FIB-Total Bilirubin 0.7 mg/dL (0.2-1.2); Liver Fibrosis Score 0.68; Liver Fibrosis Stage F3; Nec Inflam Act Grade A0; Nec Inflam Act Score 0.09
== END 2022-10-22 10:08 | disposition home or self-care (01) ==
LOC: HO.HHCL 10:07
PROVIDERS: Visit Provider Internal Medicine
DX: K74.00 Hepatic fibrosis, unspecified (principal); Z86.19 Personal history of other infectious and parasitic diseases
CPT/HCPCS: 36415; 80076; 81596; 82105; 85025; 85610; 87522

== ENCOUNTER 2022-10-30 10:53 | Outpatient (REF) | payer MEDICAID, SELFPAY ==
--- NOTE | ~2022-10-30 | US_ITS ---
EXAMINATION: US COMPLETE ABDOMEN WITH LIVER ELASTOGRAPHY CLINICAL INFORMATION: Liver fibrosis, history of hepatitis C COMPARISON: Abdominal ultrasound 04/20/2021 TECHNIQUE: Real-time imaging of the abdominal viscera. Noninvasive ultrasound liver fibrosis assessment is performed using Alec ElastPQ point quantification shear wave elastography (2D-SWE) with a C5-2 MHz transducer. Multiple elastography samples are obtained. FINDINGS: PANCREAS: Normal body, the head and tail are partly obscured by bowel gas. The pancreatic duct measures 0.3 cm. ABDOMINAL AORTA: The proximal, middle, and distal aortic segments are normal in caliber. INFERIOR VENA CAVA: Visualized portions are normal. LIVER: The parenchyma of the liver is heterogeneous. No focal lesion. Mild dilatation of the intrahepatic bile ducts. The right lobe measures 16.3 cm in length. The left lobe measures 9.8 cm in length. Portal flow is hepatopedal. Shear wave liver elastography median stiffness is 1.47 m/s (reference: normal median stiffness is 1.3 m/s or less). IQR/median stiffness to assess sampling precision is 0.11 (reference: good quality data set is IQR/median stiffness of 0.15 or less). GALLBLADDER: The patient is status post cholecystectomy. COMMON BILE DUCT: Normal in caliber measuring 0.9 cm in diameter. RIGHT KIDNEY: 1.1 x 1.0 x 1.2 cm ?Complex cyst in the upper pole No hydronephrosis. No renal calculi. The kidney measures 10.5 cm in maximum dimension. LEFT KIDNEY: 0.2 x 0.2 x 0.2 cm nonobstructing calculus is seen in the mid kidney No hydronephrosis. No focal parenchymal lesions. The kidney measures 11.1 cm in maximum dimension. SPLEEN: Normal. The spleen measures 12.5 cm in maximum dimension. FREE FLUID: None. US/US abdomen comp w elastography IMPRESSION: 1. Heterogeneous parenchyma of the liver. 2. Liver elastography: In the absence of other known clinical signs, rules out compensated advanced chronic liver disease. If there are known clinical signs, further testing may be needed for confirmation. 3. Complex 1.3 cm right renal cyst, without significant change. This is likely a Bosniak 2F. 4. Mild dilatation of the intrahepatic bile ducts. REFERENCE: Society of Radiologists in Ultrasound Liver Stiffness Thresholds (2020): LIVER STIFFNESS THRESHOLDS: *Liver Stiffness equal or less than 1.3 m/s: High probability of being normal. *Liver Stiffness less than 1.7 m/s: In the absence of other known clinical signs, rules out compensated advanced chronic liver disease. *Liver Stiffness 1.7-2.1 m/s: Suggestive of compensated advanced chronic liver disease but need further test for confirmation. *Liver Stiffness over 2.1 m/s: Rules in compensated advanced chronic liver disease. *Liver Stiffness over 2.4 m/s: Suggestive of clinically significant portal hypertension. QUALITY OF DATA SET: *IQR/median value equal or less than 0.15 implies a quality data set. *IQR/median value over 0.15 implies a poor quality data set. SIGNIFICANT CHANGE FROM PRIOR EXAM: Significant change if liver stiffness measurement is 10% or greater from prior exam. OTHER CONSIDERATIONS: The stage of liver fibrosis may be overestimated in the setting of acute hepatitis, liver inflammation, elevated liver function tests, hepatic vascular congestion, obstructive cholestasis, non-fasting state, and infiltrative diseases such as amyloidosis and lymphoma. In some patients with NAFLD, the liver stiffness thresholds for compensated advanced chronic liver disease may be lower. In causes other than viral hepatitis and NAFLD, liver stiffness thresholds are not well established.
== END 2022-10-30 10:54 | disposition home or self-care (01) ==
LOC: HO.US 10:53
PROVIDERS: PCP Nurse Practitioner Primary Care; Visit Provider Internal Medicine
DX: K74.00 Hepatic fibrosis, unspecified (principal); Z86.19 Personal history of other infectious and parasitic diseases
CPT/HCPCS: 76705; 76981

== ENCOUNTER 2022-12-06 10:28 | Outpatient (REF) | payer MEDICAID, SELFPAY ==
[2022-12-06 11:57] LABS: Estimated Average Glucose 88 mg/dL; Hemoglobin A1c % 4.7 % (<6.0)
[2022-12-06 12:14] LABS: Cholesterol 162 mg/dL (<200); HDL Cholesterol 49 mg/dL (>40); LDL Cholesterol Calculated 91 mg/dL (<100); Triglycerides 114 mg/dL (<150)
== END 2022-12-06 10:29 | disposition home or self-care (01) ==
LOC: HO.HHCL 10:28
PROVIDERS: Visit Provider Nurse Practitioner Primary Care
DX: Z00.00 Encounter for general adult medical examination without abnormal findings (principal); R73.02 Impaired glucose tolerance (oral)
CPT/HCPCS: 36415; 80061; 83036

== ENCOUNTER 2022-12-20 09:11 | Outpatient (REF) | payer MEDICAID, SELFPAY ==
--- NOTE | 2022-12-20 09:14 | EMG_ITS ---
Left median and ulnar motor and sensory studies were performed. Left radial sensory study was performed and paraspinal muscles were tested with a needle. Left median and lateral antecubital brachial sensory studies were performed. IMPRESSION: 1. 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 2. Mild left median neuropathy across the carpal tunnel. MD KIERAN Carty/MATILDE / [id number]
== END 2022-12-20 09:12 | disposition home or self-care (01) ==
LOC: HO.NEURO 09:11
PROVIDERS: PCP Nurse Practitioner Primary Care; Visit Provider Family Medicine
DX: M25.512 Pain in left shoulder (principal); M25.522 Pain in left elbow; R20.0 Anesthesia of skin
CPT/HCPCS: 95886; 95910

== ENCOUNTER 2023-05-13 15:36 | Outpatient (REF) | payer MEDICAID, SELFPAY ==
--- NOTE | ~2023-05-13 | CT_ITS ---
EXAMINATION: CT CHEST SCREENING CLINICAL INFORMATION: Nonsmoker for 2 years. History of smoking 1 pack per day for a total of 40 pack years. COMPARISON: CT lung screening 03/06/2022. TECHNIQUE: Multidetector volumetric CT imaging of the chest is performed without contrast using low dose technique. Additional 2D coronal and sagittal reformatted images and axial 3D maximum intensity projection (MIP) images are generated on the CT workstation. This CT examination was performed using dose optimization techniques as appropriate, variously including the following: *Automated exposure control *Adjustment of mA and/or kV according to patient size (this includes techniques or standardized protocols for targeted exams where dose is matched to indication/reason for exam; i.e. extremities or head) *Use of iterative reconstruction technique DLP: 65 mGy-cm FINDINGS: LUNGS: The lungs are clear with no evidence of inflammation or nodules. Mild emphysematous changes are present. Generalized bronchial thickening is present. Right basilar atelectasis is new compared with prior. MEDIASTINUM: The mediastinum is normal. CORONARY ARTERY CALCIFICATION: Minimal. PLEURA: There is no pleural effusion. No pleural mass or thickening. AXILLA/chest wall: No lymphadenopathy. Collateral gynecomastia. UPPER ABDOMEN: Unremarkable. Status post cholecystectomy. OSSEOUS STRUCTURES: Unremarkable. CT/CT lung screening IMPRESSION: No suspicious pulmonary nodules to suggest malignancy. New right basilar atelectasis. Underlying emphysema and mild bronchial thickening. ASSESSMENT: Lung-RADS category 1: Negative RECOMMENDATION: Routine annual low-dose CT screening in 12 months.
== END 2023-05-13 15:37 | disposition home or self-care (01) ==
LOC: HO.CT 15:36
PROVIDERS: PCP Nurse Practitioner Primary Care; Visit Provider Nurse Practitioner Family
DX: Z12.2 Encounter for screening for malignant neoplasm of respiratory organs (principal); F17.210 Nicotine dependence, cigarettes, uncomplicated
CPT/HCPCS: 71271

== ENCOUNTER 2023-05-24 09:14 | Outpatient (REF) | payer MEDICAID, SELFPAY ==
[2023-05-24 12:44] LABS: Alanine Aminotransferase 30 U/L (0-40); Albumin Level 4.3 g/dL (3.5-5.0); Alkaline Phosphatase 76 U/L (39-117); Aspartate Amino Transferase 24 U/L (5-37); Bilirubin Direct 0.3 mg/dL (0.0-0.5); Bilirubin Total 1.2 mg/dL (0.0-1.0); Total Protein 8.1 g/dL (6.5-8.0)
== END 2023-05-24 09:15 | disposition home or self-care (01) ==
LOC: HO.HHCL 09:14
PROVIDERS: Visit Provider Nurse Practitioner Primary Care
DX: F32.A Depression, unspecified (principal); K74.00 Hepatic fibrosis, unspecified; Z79.899 Other long term (current) drug therapy
CPT/HCPCS: 36415; 80076; 80164

== ENCOUNTER 2024-06-29 12:22 | Outpatient (REF) | payer MEDICAID, SELFPAY ==
--- NOTE | ~2024-06-29 | CT_ITS ---
EXAMINATION: CT LUNG SCREENING HISTORY: F17.210 - Nicotine dependence, cigarettes, uncomplicated TECHNIQUE: Low dose axial images were obtained from the sternal notch to upper abdomen without IV contrast per standard departmental protocol. Sagittal and coronal reformatted images were also obtained and reviewed. One or more of the following techniques was used for dose reduction: Automated exposure control, adjustment of the mA and/or kV according to patient size, use of iterative reconstruction technique. DLP: 52 mGy-cm COMPARISON: Comparison is made with the prior examination dated 05/13/2023. FINDINGS: Lung nodules: No pulmonary nodules are identified. There is scarring in the right lower lobe and lingula. No pulmonary nodules are identified. Emphysema: mild Coronary Calcification: mild Aortic Arch Calcification: none Potentially Significant Incidentals : none Additional Chest Findings: There is no pleural or pericardial effusion. No mediastinal or axillary lymphadenopathy is identified. Visualized upper abdomen: The visualized portions of the liver, spleen, and adrenals have an unremarkable unenhanced appearance. CT/CT lung screening IMPRESSION: No suspicious pulmonary nodules are identified. LUNG-RADS ASSESSMENT: Lung-RADS 2: Benign MANAGEMENT: Continue annual screening with LDCT in 12 months Category S: N/A Electronically signed by: Mir Cummins MD 06/29/2024 03:16 PM EDT
--- OUTSIDE RECORDS SUMMARY | 2024-06-29 12:46 | XMS_ITS | Encounter Summary ---
Author Organization [employer] Address [address] [facility] 7t [place] [address] Care Team Providers Care Crusher Dry Ground Mica Name Role Phone Jessica Corbett Primary Care Provider [phone] Reason for Visit * Reason Onset Date Comments Nurse Triage 10/18/2022 Encounter Details Date Type Department Care Team ([facility] st Contact Info) Description 10/18/2022 Telephone [facility] MEDICINE [address] [place], [place] [phone] Jessica Corbett ANP [address] [place] [address] Nurse Triage Social History Tobacco Use Types Packs/Day Years Used Date Smoking Tobacco: Former Cigarettes Q uit: 11/2021 Smokeless Tobacco: Never Alcohol Use Standard Drinks/Week Comments Not Currently 0 (1 standard drink = 0.6 oz pur e alcohol) Depression Answer Date Recorded Patient Health Questionnaire-9 Score 13 03/08/2022 Depression Answer Date Recorded Patient Health Questionnaire-2 Score 6 03/08/2022 Sex and Gender Information Value Date Recorded Sex Assigned at Male 12/11/2021 10:15 AM EDT Legal Sex Male 10:15 AM EDT Gender Identity Choose not to disclose 10:15 AM EDT Sexual Orientation Choose not to disclose 2021 10:15 AM EDT documented as of this encounter Miscellaneous Notes * Telephone Encounter - Telma Cordova RN - 10/18/2022 10:19 AM EDT Triage call Pt reports pain in left arm from shoulder to fingers. Pt reports numbness in fingers and tingling pins and needles in arm. Pt is unable to us arm and not able to sleep due to the pain. Pt reports cream Dr. morales Pt doesn't work. Pt declines to go to PT because, I have too much pain I know my body I can't let them work on my arm . Pt reports tylenol/ibuprofen doesn't help at all. Pt is requesting apt with PCP. Advised Pt no available apts for two weeks or more. Pt is advised to be seen by provider in [facility] today or tomorrow and Pt agrees. Pt is already trying all home care advised. Protocol Used: Arm Pain (Adult) Protocol-Based Disposition: See in Office or Video Visit Today or Tomorrow Video visit not offered Positive Triage Questions: * Numbness (i.e., loss of sensation) in hand or fingers * Patient wants to be seen * All higher-acuity triage questions were negative Care Advice Discussed: * Pain Medicines * Pain Medicines - Extra Notes and Warnings * Reasons To Call Back - Moderate pain (e.g., interferes with normal activities) lasts more than 3 days - Mild pain lasts more than 7 days - Arm swelling occurs - Signs of infection occur (e.g., spreading redness, warmth, fever) - You become worse * Use a Cold Pack for Pain * Use Heat After 48 Hours for Pain * Telephone Encounter - Ayana Brito - 10/18/2022 10:00 AM EDT Symptom: Arm Pain - Not From Injury Outcome: Schedule an urgent appointment (within 1 hour) or talk to a nurse or provider soon Reason: Can't use the arm normally The caller accepted this outcome documented in this encounter Plan of Treatment Not on file documented as of this encounter Visit Diagnoses Not on filedocumented in this encounter Additional Health Concerns Assessment Noted Time PHQ-9 Depression Total Score: 13 023 1:06 PM EST documented as of this encounter Care Teams Crusher Dry Ground Mica Relationship Specialty Start Date End Date Jessica Corbett ANP [address] [place] [id number] PCP - General Family Medicine 10/07/21 documented as of this encounter
--- OUTSIDE RECORDS SUMMARY | 2024-06-29 12:46 | XMS_ITS | Clinical Summary ---
Author Organization [facility], Address [address] [place] [address] [place] [address] Phone Care Team Providers Care Meter Calibrator Name Role Phone Jessica Corbett NP Primary Care Provider [phone] Allergies Active Allergy Reactions Criticality Noted Date Comments Interferon Carlos-2a Hives 02/08/2022 [place] Hives 02/08/2022 Naproxen Hives 02/08/2022 Medications divalproex (DEPAKOTE) 500 MG EC tablet Take 500 mg by mouth in the morning and 500 mg in the evening and 500 mg before bedtime. Do not crush, chew, or split. . Active doxepin (SINEquan) 100 MG capsule Take 100 mg by mouth every night Active gabapentin (NEURONTIN) 100 MG capsule Take 100 mg by mouth in the morning and 100 mg in the evening and 100 mg before bedtime. Active omeprazole (PriLOSEC) [address] capsule Take 20 mg by mouth 1 (one) time each day Do not crush or chew. 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 Immunizations Immunization Administration Dates Next Due Pneumococcal Polysaccharide 06/23/2012 Social History Tobacco Use Types Packs/Day Years Used Date Smoking Tobacco: Some Days Sex and Gender Information Value Date Recorded Sex Assigned at Not on file Legal Sex Male 2:58 PM EDT Gender Identity Not on file Sexual Orientation Not on file Last Filed Vital Signs Vital Sign Reading Time Taken Comments Blood Pressure 139/80 08/21/2022 2:18 PM EDT Pulse 101 08/21/2022 2:18 PM EDT Temperature - - Respiratory Rate - - Oxygen Saturation - - Inhaled Oxygen Concentration - - Weight 74.9 kg (165 lb 3.2 oz) 08/21/2022 2:18 P M EDT Height - - Body Mass Index - - Plan of Treatment Upcoming Encounters Date Type Department Care Team (Late st Contact Info) Description 08/06/2024 4:00 PM EDT Office Visit [facility], [address] [place] [address] Santos Raymundo MD [address] [place] [address] Health Maintenance Due Date Last Done Comments Hepatitis B Vaccine (1 of 3 - 19+ 3-dose series) 1984 02/28/2018, 09/20/2017, 07/19/2017, Additional history exists Colorectal Cancer Screening: Annual FOBT 2014 Colorectal Cancer Screening: Colonoscopy 2014 Colorectal Cancer Screening: Sigmoidoscopy 2014 Pneumococcal Vaccine: 50+ Ye ars (3 of 3 - PCV) 04/21/2018 04/21/2017, 02/09/2013, 06/23/2012 Influenza Vaccine (Season Ended) 2024 Pneumococcal Vaccine: Peds ( 0 to 5 Years) and At-Risk Patients (6 to 49 Years) Discontinued 04/21/2017, 02/09/2013, 06/23/2012 Insurance Medicaid [place] Care Teams Meter Calibrator Relationship Specialty Start Date End Date Jessica Corbett NP [address] [place] [address] PCP - General Nurse Practitioner 08/21/22
--- OUTSIDE RECORDS SUMMARY | 2024-06-29 12:46 | XMS_ITS ---
Author Organization [facility] Address [address] [place] [phone] Care Team Providers Care Parts Picker Name Role Phone DONNIE DO N.P. Primary Care Provider Mir Romeo [phone] REASON FOR VISIT Patient presents today for hep c Encounters Encounter Location Date Provider Diagnosis [facility] [address] [place] [phone] 10/10/2023 Mir Sanford Plan Of Treatment No Information Progress Notes * AMY MEHRDADSharynSHAUNOB:1965 ( 59 yo M)Acc No.[id number]:10/10/2023 Progress Notes Patient:?NATASHA LAIRDGE Provider:?Mir Sanford MD :1965???Age:58 Y???Sex:Male Amador e:10/10/2023 Address:[address] [place], [place] [id number] Pcp:DONNIE DO N.P. Subjective: * Chief Complaints: * ???1. Patient presents today for hep c. * Medical History:? Objective: * Vitals:? Assessment: Plan: * Treatment: * * The named appointment provid er may or may not be the originator of this progress note, and it is not deemed complete until electronically signed by the appointment provider. Sign off status: Pending * Provider:?Mir Sanford MD Date:? 024 Generated for Emilyi ng/Farossg/eTransmitting on:?06/29/2024 12:46 PM EDT
--- OUTSIDE RECORDS SUMMARY | 2024-06-29 12:46 | XMS_ITS | Encounter Summary ---
Author Organization [employer] Address [address] [facility] 7t [place] [address] Care Team Providers Care Steel Loader Name Role Phone Jessica Corbett Primary Care Provider [phone] Encounter Details Date Type Department Care Team (Latest Contact Info) Description 06/26/2024 Travel Social History Tobacco Use Types Packs/Day Years Used Date Smoking Tobacco: Former Cigarettes Q uit: 11/2021 Smokeless Tobacco: Never Alcohol Use Standard Drinks/Week Comments Not Currently 0 (1 standard drink = 0.6 oz pur e alcohol) Depression Answer Date Recorded Patient Health Questionnaire-9 Score 5 08/20/2023 Patient Health Questionnaire-9 Score 5 08/20/2023 Last PHQ-9: Questionnaire Data Not on file 0 08/20/2023 Housing Stability Answer Date Recorded What is your housing situation today? I have evgeny amaya [address] you li ve. Do you have problems with any of the following? None of the above 2023 Food Insecurity Answer Date Recorded Within the past 12 months, y ou worried that your food would run out before you got money to buy more: Never True 2023 Within the past 12 months,th e food you bought just didn't last and you didn't have enough money to get more: Never True Transportation Answer Date Recorded In the past 12 months, has l ack of transportation kept you from medical appts, meetings, work or from getting things needed for daily living? No 2023 Utilities Answer Date Recorded In the past 12 months, has t he electric, gas, oil or water company threatened to shut off services in your home? No 2023 Depression Answer Date Recorded Patient Health Questionnaire-2 Score 0 06/26/2024 Internet Access Answer Date Recorded Internet Access Q1 Yes 10/14/2023 Internet Access Q2 Not on file 10/14/2023 Sex and Gender Information Value Date Recorded Sex Assigned at Male 12/11/2021 10:15 AM EDT Legal Sex Male 10:15 AM EDT Gender Identity Choose not to disclose 10:15 AM EDT Sexual Orientation Choose not to disclose 2021 10:15 AM EDT documented as of this encounter Functional Status * Over the past 2 weeks, how often have you been bothered by any of the following problems? Question Answer Date of Assessment Author Little interest or pleasure in doing things Not at all 06/26/2024 10:47 AM EDT Nick Olson MA Feeling down, depressed, or hopeless Not at all 06/26/2024 10:47 AM EDT Nick Olson MA Patient Health Questionnaire-2 Score 0 06/26/2024 10:47 AM EDT Anna Olson MA documented as of this encounter Plan of Treatment Not on file documented as of this encounter Visit Diagnoses Not on filedocumented in this encounter Additional Health Concerns Assessment Noted Time PHQ-9 Depression Total Score: 5 08/20/19 24 11:50 AM EDT documented as of this encounter Care Teams Steel Loader Relationship Specialty Start Date End Date Jessica Corbett ANP [address] [place] [address] PCP - General Family Medicine 10/07/21 documented as of this encounter
--- OUTSIDE RECORDS SUMMARY | 2024-06-29 12:46 | XMS_ITS | Encounter Summary ---
Author Organization [employer] Address [address] [facility] 7t [place] [address] Care Team Providers Care Icing Machine Operator Name Role Phone Jessica Corbett Primary Care Provider [phone] Encounter Details Date Type Department Care Team ([facility] st Contact Info) Description 02/02/2022 Orders Only [facility]S [address] [place] [address] Serena Schwab LPN Social History Tobacco Use Types Packs/Day Years Used Date Smoking Tobacco: Never Assessed Sex and Gender Information Value Date Recorded Sex Assigned at Male 12/11/2021 10:15 AM EDT Legal Sex Male 10:15 AM EDT Gender Identity Choose not to disclose 10:15 AM EDT Sexual Orientation Choose not to disclose 2021 10:15 AM EDT documented as of this encounter Plan of Treatment Not on file documented as of this encounter Visit Diagnoses Not on filedocumented in this encounter Care Teams Icing Machine Operator Relationship Specialty Start Date End Date Jessica Corbett ANP [address] [place] [address] PCP - General Family Medicine 10/07/21 documented as of this encounter
--- OUTSIDE RECORDS SUMMARY | 2024-06-29 12:46 | XMS_ITS | Encounter Summary ---
Author Organization [employer] Address [address] [facility] 7t [place] [address] Care Team Providers Care Sports Editor Name Role Phone Jessica Corbett Primary Care Provider [phone] Encounter Details Date Type Department Care Team ([facility] st Contact Info) Description 02/08/2022 Telephone [facility] MEDICINE [address] [place], [place] [phone] Jessica Corbett ANP [address] [place] [address] Social History Tobacco Use Types Packs/Day Years Used Date Smoking Tobacco: Never Assessed Sex and Gender Information Value Date Recorded Sex Assigned at Male 12/11/2021 10:15 AM EDT Legal Sex Male 10:15 AM EDT Gender Identity Choose not to disclose 10:15 AM EDT Sexual Orientation Choose not to disclose 2021 10:15 AM EDT COVID-19 Exposure Response Date Recorded In the last 10 days, have yo u been in contact with someone who was confirmed or suspected to have Coronavirus/COVID-19? No / Unsure 02/06/2022 11:26 AM EST documented as of this encounter Plan of Treatment Not on file documented as of this encounter Visit Diagnoses Not on filedocumented in this encounter Care Teams Sports Editor Relationship Specialty Start Date End Date Jessica Corbett ANP [address] [place] [phone] PCP - General Family Medicine 10/07/21 documented as of this encounter
--- OUTSIDE RECORDS SUMMARY | 2024-06-29 12:46 | XMS_ITS | Encounter Summary ---
Author Organization [employer] Address [address] [facility] 7t [place] [address] Care Team Providers Care Felt Cementer Name Role Phone Jessica Corbett Primary Care Provider [phone] Reason for Visit * Reason Comments Med Refill Encounter Details Date Type Department Care Team ([facility] st Contact Info) Description 08/28/2023 Refill [facility] MEDICINE [address] [place], [place] [phone] Jessica Corbett ANP [address] [place] [address] Acute pain of left shoulder Social History Tobacco Use Types Packs/Day Years [...] Answer Date Recorded Patient Health Questionnaire-2 Score 2 08/20/2023 Sex and Gender Information Value Date Recorded Sex Assigned at Male 12/11/2021 10:15 AM EDT Legal Sex Male 10:15 AM EDT Gender Identity Choose not to disclose 10:15 AM EDT Sexual Orientation Choose not to disclose 2021 10:15 AM EDT documented as of this encounter Plan of Treatment Not on file documented as of this encounter Visit Diagnoses Diagnosis Acute pain of left shoulder documented in this encounter Additional Health Concerns Assessment Noted Time PHQ-9 Depression Total Score: 5 08/20/19 24 11:50 AM EDT documented as of this encounter Care Teams Felt Cementer Relationship Specialty Start Date End Date Jessica Corbett ANP [address] [place] [id number] PCP - General Family Medicine 10/07/21 documented as of this encounter
--- OUTSIDE RECORDS SUMMARY | 2024-06-29 12:46 | XMS_ITS | Clinical Summary ---
Author Organization [facility] Address [address] [place] [address] Phone Care Team Providers Care Master Black Belt Name Role Phone AricJessica Sharyn OLIVER Primary Care Provider Allergies Active Allergy Reactions Criticality Noted Date Comments Interferon Carlos-2a Hives 03/18/2024 [place] Hives 03/18/2024 Naproxen Hives 03/18/2024 Ribavirin 03/18/2024 Medications divalproex (DEPAKOTE ER) 250 mg 24 hr tablet Take 1 tablet (250 mg total) by mouth at bedtime. Do not crush, chew, or split. 30 each 03/24/2024 Active divalproex (DEPAKOTE ER) 500 mg 24 hr tablet Take 1 tablet (500 mg total) by mouth at bedtime. Do not crush, chew, or split. 30 each 03/24/2024 Active doxepin (SINEquan) 100 mg capsule Take 1 capsule (100 mg total) by mouth at bedtime. 30 each 03/24/2024 Active pregabalin (LYRICA) 200 mg capsule Take 1 capsule (200 mg total) by mouth 2 (two) times a day. Max Daily Amount: 400 mg 60 each 03/24/2024 Active tiZANidine (ZANAFLEX) 4 mg capsule Take 1 capsule (4 mg total) by mouth 3 (three) times a day. 90 each 03/24/2024 Active traZODone (DESYREL) 150 mg tablet Take 1 tablet (150 mg total) by mouth at bedtime as needed for sleep. 30 tablet 03/24/2024 Active Active Problems Problem Noted Date Diagnosed Date Lumbar spinal stenosis 03/18/2024 Encounters Date Type Department Care Team Description 05/28/2024 2:00 PM EDT Evaluation [address] [address] Laura Rodas PT Spinal stenosis of lumbar region, unspecified whether neurogenic claudication present (Primary Dx) 05/12/2024 Patient Outreach [facility] [address] [address] Nona Murphy LCSW 04/29/2024 Patient Outreach [facility] [address] [address] Nona Murphy LCSW from Last 3 Months Medical History Medical History Date Comments Hepatitis C Seizure (CMS/HCC V24, CMS/HCC V28) Social History Tobacco Use Types Packs/Day Years Used Date Smoking Tobacco: Never Assessed Health Literacy Answer Date Recorded How often do you need to hav e someone help you when you read instructions, pamphlets, or other written material from your doctor or pharmacy? Always 03/24/2024 Caregiver: How often do you need to have someone help you when you read instructions, pamphlets, or other written material from your doctor or pharmacy? Not on file 03/24/2024 Transportation Answer Date Recorded Has the lack of transportati on kept you from meetings, work, or from getting things needed for daily living? No Has the lack of transportati on kept you from medical appointments or from getting medications? No 03/18/2024 Social Isolation Answer Date Recorded How often do you feel lonely or isolated from th ose around you? Never 03/24/2024 Interpersonal Safety Answer Date Record ed Physical Abuse 03/18/2024 Verbal Abuse 03/18/2024 Sex and Gender Information Value Date Recorded Sex Assigned at Male 03/18/2024 2:34 PM EST Legal Sex Male 6:13 PM EST Gender Identity Male 03/18/2024 2:34 PM EST Sexual Orientation Straight 03/18/2024 2: 34 PM EST Obstetrics History Last Filed Vital Signs Vital Sign Reading Time Taken Comments Blood Pressure 93/71 03/25/2024 7:36 AM EST Pulse 78 03/25/2024 7:36 AM EST Temperature 36.3 ??C (97.3 ??F) 03/25/2024 7:36 AM ES T Respiratory Rate 18 03/25/2024 7:36 AM EST Oxygen Saturation 97% 03/25/2024 7:36 AM EST Inhaled Oxygen Concentration - - Weight 98 kg (216 lb 0.8 oz) 03/18/2024 11:05 AM EST Height 188 cm (6' 2.02 ) 03/18/2024 11:05 AM EST Body Mass Index 27.73 03/18/2024 11:05 AM EST Plan of Treatment Health Maintenance Due Date Last Done Comments Zoster Vaccines (1 of 2) 2015 Pneumococcal Vaccine: 50+ Years (2 of 2 - PCV) 04/21/2018 04/21/2017, 02/09/2013, 06/23/2012 DTaP,Tdap,and Td Vaccines (4 - Td or Tdap) 02/09/2023 02/09/2013, 08/23/2009, 10/22/1996 Colorectal Cancer Screening: Colonoscopy 03/12/2023 Hepatitis C Screening 03/12/2023 COVID-19 Vaccine ( season) 2023 02/06/2022, 09/14/2021, 07/06/2020, Additional history exists Influenza Vaccine (Season Ended) 2024 11/24/2007 Depression Screening 03/24/2025 03/24/2024 Social Influencers of Health Screening 03/24/2025 03/24/2024 Cholesterol Screening (Lipid Panel) 12/07/2027 12/06/2022 RSV Immunization Adult Patients (1 - 1-dose 75+ series) 2040 Hepatitis A Vaccines Completed 02/09/2013, 10/24/19 00 Pneumococcal Vaccine: Pediatrics (0 to 5 Years) and At-Risk Patients (6 to 64 Years) Aged Out 04/21/2017, 02/09/2013, 06/23/2012 No longer eligible based on patient's age to complete this topic Hepatitis B Vaccines Completed 02/28/2018, 09/20/2017, 07/19/2017, Additional history exists HIV Screening Completed 11/11/2020 HIB Vaccines Aged Out No longer eligi ble based on patient's age to complete this topic HPV Vaccines Aged Out No longer eligi ble based on patient's age to complete this topic IPV Vaccines Aged Out No longer eligi ble based on patient's age to complete this topic MMR Vaccines Aged Out No longer eligi ble based on patient's age to complete this topic Meningococcal ACWY Vaccine Aged Out N o longer eligible based on patient's age to complete this topic Meningococcal B Vaccine Aged Out No l onger eligible based on patient's age to complete this topic RSV Immunization Patients Under 20 months Aged Out No longer eligible based on patient's age to complete this topic Varicella Vaccines Aged Out No longer eligible based on patient's age to complete this topic Insurance MEDICAID - [place] Advance Directives Documents on File Type Date Recorded Patient Operations Officer Trust Department Expl anation Advance Directives and Living Will 03/24/2024 11:27 AM HEALTH CARE PROXY * Full Code - Default (Latest Code Status on File) Date Activated Date Inactivated Comments 03/18/2024 4:23 PM 03/25/2024 3:17 PM This is order is used when code status has not been discussed with the patient, or code status is otherwise unknown/unconfirmed To update the patient's code status, place a code status order. Do not modify or discontinue any currently active code status orders. Care Teams Master Black Belt Relationship Specialty Start Date End Date Jessica Corbett NP [address] [facility] [address] [place] [address] PCP - General 03/18/24
--- OUTSIDE RECORDS SUMMARY | 2024-06-29 12:46 | XMS_ITS | Encounter Summary ---
Author Organization [employer] Address [address] [facility] 7t [place] [address] Care Team Providers Care Concrete Grinder Operator Name Role Phone Jessica Corbett Primary Care Provider [phone] Reason for Visit * Reason Onset Date Comments Appointment Request 10/12/2022 Encounter Details Date Type Department Care Team ([facility] st Contact Info) Description 10/12/2022 Telephone [facility] MEDICINE [address] [place], [place] [phone] Jessica Corbett ANP [address] [place] [address] Appointment Request Social History Tobacco Use Types Packs/Day Years [...] encounter Miscellaneous Notes * Telephone Encounter - Ayana Daryl - 10/12/2022 9:10 AM EDT Tc from patient requesting a f/u appt from 10/10/22 sick onsite appt. States he was sent to PT and doesn't agree with the plan. Patient is requesting a appt with PCP. documented in this encounter Plan of Treatment Not on file documented as of this encounter Visit Diagnoses Not on filedocumented in this encounter Additional Health Concerns Assessment Noted Time PHQ-9 Depression Total Score: 13 023 1:06 PM EST documented as of this encounter Care Teams Concrete Grinder Operator Relationship Specialty Start Date End Date Jessica Corbett ANP [address] [place] [phone] PCP - General Family Medicine 10/07/21 documented as of this encounter
--- OUTSIDE RECORDS SUMMARY | 2024-06-29 12:46 | XMS_ITS ---
Author Organization [facility] Address [address] [place] [phone] Care Team Providers Care Client Services Specialist Name Role Phone DONNIE DO N.P. Primary Care Provider Mir Romeo [phone] Encounters Encounter Location Date Provider Diagnosis [facility] [address] [place] [phone] 10/09/2023 Mir Sanford Plan Of Treatment No Information Progress Notes * SVETLANA REYESOB:1965 ( 58 yo M)Acc No.[id number]:10/09/2023 Patient:?EMILIANA REYES :1965???Age:58 Y???Sex:Male Address:[address] [place] [phone] * true * Date:? Generated for Emilyi joao/Sandra/eTransmitting on:?06/29/2024 12:45 PM EDT
--- OUTSIDE RECORDS SUMMARY | 2024-06-29 12:46 | XMS_ITS | Encounter Summary ---
Author Organization [employer] Address 75 [facility] 7t [place] [address] Care Team Providers Care Weight Control Engineer Name Role Phone Jessica Corbett Primary Care Provider [phone] Encounter Details Date Type Department Care Team ([facility] st Contact Info) Description 02/01/2022 Orders Only [facility] [address] [place], [place] [phone] Kinsey Cano LPN Social History Tobacco Use Types Packs/Day [...] on filedocumented in this encounter Care Teams Weight Control Engineer Relationship Specialty Start Date End Date Jessica Corbett ANP [address] [place] [address] PCP - General Family Medicine 10/07/21 documented as of this encounter
--- OUTSIDE RECORDS SUMMARY | 2024-06-29 12:46 | XMS_ITS | Encounter Summary ---
Author Organization [employer] Address [address] [facility] 7t [place] [address] Care Team Providers Care Block Making Machine Operator Name Role Phone Jessica Corbett Primary Care Provider [phone] Reason for Referral * Consultation (Routine) - Authorized Specialty Diagnoses / Procedures Referred By Ermias t Referred To Contact Pharmacy Diagnoses Degenerative lumbar spinal stenosis Jessica Corbett ANP [address] [place] [address] Phone: tel: fax: Referral ID Status Reason Start Date Expiration Date Visits Requested Visits Authorized [id number] Authorized Continuity of Care 06/26/2024 06/26/2025 6 6 Reason for Visit * Reason Comments HDF Encounter Details Date Type Department Care Team ([facility] st Contact Info) Description 06/26/2024 10:30 AM EDT Office Visit [facility] [address] [place] [phone] Jessica Corbett ANP [address] [place], [place] [phone] Degenerative lumbar spinal stenosis (Primary Dx); Major depressive disorder, remission status unspecified, unspecified whether recurrent; Seizure disorder (CMS/HCC); Primary insomnia; Thrombocytopenia (CMS/HCC) Social History Tobacco Use Types Packs/Day Years [...] AM EDT documented as of this encounter Last Filed Vital Signs Vital Sign Reading Time Taken Comments Blood Pressure 140/85 06/26/2024 10:46 AM EDT Pulse 102 06/26/2024 10:46 AM EDT Temperature - - Respiratory Rate 18 06/26/2024 10:46 AM EDT Oxygen Saturation - - Inhaled Oxygen Concentration - - Weight 93.9 kg (207 lb) 06/26/2024 10:46 AM EDT Height 188 cm (6' 2 ) 06/26/2024 10:46 AM EDT Body Mass Index 26.58 06/26/2024 10:46 AM EDT documented in this encounter Functional Status * Over the [...] Olson [place] documented as of this encounter Patient Instructions * Patient Instructions* KEILA Haley - 06/26/2024 10:30 AM EDT Below are instructions to obtain a [employer]: 1.) Pick a [employer] company from the attached list. We recommend [employer] but you can chose any of them. 2.) Call and tell them you want [employer] services. 3.) They will schedule a home evaluation to see if you are eligible for services. 4.) They will fax us a form to complete. 5.) We will fill it out and fax it back. 6.) They will determine the number of [employer] hours you are eligible and will notify you and will startsending a [employer]ER [employer]PER to your home. Please don't hesitate to contact us if you have any questions or concerns regarding this. [facility] [address] [place] [address] [facility] [address] [place] [address] [facility] (Not accepted by [facility]) [address] [address] If over age 60 : [address] [address] [facility] [address] [place] [address] documented in this encounter Plan of Treatment Scheduled Orders Name Type Priority Associated Diagnoses Orde r Schedule CBC auto differential Lab Routine Thrombocytopenia (CMS/HCC) Expected: 06/26/2024 (Approximate), Expires: 06/26/2025 Comprehensive Metabolic Panel Lab Routine Thrombocytopenia (CMS/HCC) Expected: 06/26/2024 (Approximate), Expires: 06/26/2025 Scheduled Referrals Name Type Priority Associated Diagnoses Orde r Schedule Referral to Pharmacy MTM Outpatient Referral Routine Degenerative lumbar spinal stenosis Ordered: 06/26/2024 documented as of this encounter Visit Diagnoses Diagnosis Degenerative lumbar spinal stenosis- Primary Spinal stenosis of lumbar region Major depressive disorder, remission status unspecified, unspecified whether recurrent Seizure disorder (CMS/[facility]) Unspecified epilepsy without mention of intractable epilepsy Primary insomnia Persistent disorder of initiating or maintaining sleep Thrombocytopenia (CMS/[facility]) Unspecified thrombocytopenia documented in this encounter Additional Health Concerns Assessment Noted Time PHQ-9 Depression Total Score: 5 08/20/19 24 11:50 AM EDT documented as of this encounter Care Teams Block Making Machine Operator Relationship Specialty Start Date End Date Jessica Corbett ANP [address] [place] [id number] PCP - General Family Medicine 10/07/21 documented as of this encounter
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
--- OUTSIDE RECORDS SUMMARY | 2024-06-29 12:46 | XMS_ITS | Encounter Summary ---
Author Organization [employer] Address [address] [facility] 7t [place] [address] Care Team Providers Care Drafting Teacher Name Role Phone Jessica Corbett Primary Care Provider [phone] Reason for Visit * Reason Onset Date Comments Referral 05/04/2024 Encounter Details Date Type Department Care Team ([facility] st Contact Info) Description 05/04/2024 Telephone [facility] [address] [place], [place] [phone] Jessica Corbett ANP [address] [place] [address] Referral Social History Tobacco Use Types Packs/Day Years [...] Recorded Patient Health Questionnaire-2 Score 2 08/20/2023 Internet Access Answer Date Recorded Internet Access [...] encounter Miscellaneous Notes * Telephone Encounter - KEILA Haley - 05/06/2024 12:31 PM EDT Referral requested but also PT requesting clearance, have asked them to seek from neurosurg office * Telephone Encounter - Savanah Guzman - 05/04/2024 10:40 AM EDT Tc from pt requesting an outpatient Physical Therapy referral due a back surgery, to be sent to [facility] - [address] [place] [address]. documented in this encounter Plan of Treatment Not on file documented as of this encounter Visit Diagnoses Not on filedocumented in this encounter Additional Health Concerns Assessment Noted Time PHQ-9 Depression Total Score: 5 08/20/19 24 11:50 AM EDT documented as of this encounter Care Teams Drafting Teacher Relationship Specialty Start Date End Date Jessica Corbett ANP [address] [place] [phone] PCP - General Family Medicine 10/07/21 documented as of this encounter
--- OUTSIDE RECORDS SUMMARY | 2024-06-29 12:46 | XMS_ITS | Encounter Summary ---
Author Organization [employer] Address [address] [facility] 7t [place] [address] Care Team Providers Care Water Main Inspector Name Role Phone Jessica Corbett Primary Care Provider [phone] Reason for Visit * Reason Onset Date Comments CHART PREP 06/25/2024 Encounter Details Date Type Department Care Team ([facility] Contact Info) Description 06/25/2024 Telephone [facility] [address] [place], [place] [phone] Jessica Corbett ANP [address] [place] [address] CHART PREP Social History Tobacco Use Types Packs/Day Years [...] encounter Miscellaneous Notes * Telephone Encounter - Shane Hale MA - 06/25/2024 4:14 PM EDT Chart Prep Labs: not applicable Images: not applicable Referrals: not applicable Vaccines due: Tdap Screenings: colonoscopy Overdue care gaps: PHQ-9 documented in this encounter Plan of Treatment Not on file documented as of this encounter Visit Diagnoses Not on filedocumented in this encounter Additional Health Concerns Assessment Noted Time PHQ-9 Depression Total Score: 5 08/20/19 24 11:50 AM EDT documented as of this encounter Care Teams Water Main Inspector Relationship Specialty Start Date End Date Jessica Corbett ANP [address] [place] [phone] PCP - General Family Medicine 10/07/21 documented as of this encounter
--- OUTSIDE RECORDS SUMMARY | 2024-06-29 12:46 | XMS_ITS | Encounter Summary ---
Author Organization [facility], Address [address] [place] [address] Phone Care Team Providers Care Farmworker Grain Name Role Phone Jessica Corbett STILL OPERATOR BATCH OR CONTINUOUS Primary Care Provider [phone] Encounter Details Date Type Department Care Team (Late st Contact Info) Description 05/04/2021 Documentation Only [facility] [address] [place] [phone] Zenaida Watson, RN Social History Tobacco Use Types Packs/Day Years Used Date Smoking Tobacco: Never Assessed Sex and Gender Information Value Date Recorded Sex Assigned at Not on file Legal Sex Male 2:58 PM EDT Gender Identity Not on file Sexual Orientation Not on file documented as of this encounter Plan of Treatment Upcoming Encounters Date Type Department Care Team (Late st Contact Info) Description 08/06/2024 4:00 PM EDT Office Visit [facility] [address] [place] [address] Santos Raymundo MD [address] [place] [address] [place] [phone] documented as of this encounter Visit Diagnoses Not on filedocumented in this encounter Care Teams Farmworker Grain Relationship Specialty Start Date End Date Jessica Corbett, STILL OPERATOR BATCH OR CONTINUOUS [address] [place] [address] PCP - General Nurse Practitioner 08/21/22 documented as of this encounter
--- OUTSIDE RECORDS SUMMARY | 2024-06-29 12:46 | XMS_ITS | Encounter Summary ---
Author Organization [employer] Address [address] [facility] 7t [place] [address] Care Team Providers Care Roll Scale Man Name Role Phone Jessica Corbett Primary Care Provider [phone] Reason for Visit * Reason Onset Date Comments FYI 03/12/2022 Encounter Details Date Type Department Care Team ([facility] st Contact Info) Description 03/12/2022 Telephone [facility] [address] [place], [place] [phone] Jessica Corbett ANP [address] [place] [address] FY Social History Tobacco Use Types Packs/Day Years [...] suspected to have Coronavirus/COVID-19? No / Unsure 03/08/2022 12:32 PM EST documented as of this encounter Miscellaneous Notes * Telephone Encounter - Evelio Overtonsangeeta Hamilton - 03/12/2022 4:26 PM EST Tc from pt stating that he received a letter from 02/24/2021, pt thought letter was sent from here but letter was actually sent from [facility]. Field Education Director advised that letter was not from here, that pt should call [facility] to see if they have any information. documented in this encounter Plan of Treatment Not on file documented as of this encounter Visit Diagnoses Not on filedocumented in this encounter Additional Health Concerns Assessment Noted Time PHQ-9 Depression Total Score: 13 023 1:06 PM EST documented as of this encounter Care Teams Roll Scale Man Relationship Specialty Start Date End Date Jessica Corbett ANP [address] [place] [address] PCP - General Family Medicine 10/07/21 documented as of this encounter
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
--- OUTSIDE RECORDS SUMMARY | 2024-06-29 12:46 | XMS_ITS | Encounter Summary ---
Author Organization [employer] Address [address] [facility] [address] [place] [address] Care Team Providers Care Bookmaker'S Clerk Name Role Phone Jessica Corbett Primary Care Provider Reason for Visit * Reason Onset Date Comments Appointment Request 06/26/2024 Encounter Details Date Type Department Care Team ([facility] Contact Info) Description 06/26/2024 Telephone [facility] [address] [place], [place] [phone] Jessica Corbett ANP [address] [place] [address] Appointment Request Social History Tobacco Use Types [...] Miscellaneous Notes * Telephone Encounter - Fern Carmona - 06/26/2024 4:24 PM EDT Called Patient left vm no answer. Advised to call back and schedule 30 min f/u with PCP soonest available in July for seizure d/o. Ok to schedule if Patient calls back. documented in this encounter Plan of Treatment Not on file documented as of this encounter Visit Diagnoses Not on filedocumented in this encounter Additional Health Concerns Assessment Noted Time PHQ-9 Depression Total Score: 5 08/20/19 24 11:50 AM EDT documented as of this encounter Care Teams Bookmaker'S Clerk Relationship Specialty Start Date End Date Jessica Corbett ANP [address] [place] [phone] PCP - General Family Medicine 10/07/21 documented as of this encounter
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
== END 2024-06-29 12:23 | disposition home or self-care (01) ==
LOC: HO.CT 12:22
PROVIDERS: PCP Nurse Practitioner Primary Care; Visit Provider Physician Assistant Medical
DX: Z12.2 Encounter for screening for malignant neoplasm of respiratory organs (principal); F17.210 Nicotine dependence, cigarettes, uncomplicated
CPT/HCPCS: 71271

== ENCOUNTER → 2024-06-29 12:25 | Outpatient (BNV) | payer MEDICAID, SELFPAY | PROVIDERS: PCP Nurse Practitioner Primary Care; Visit Provider Radiology Diagnostic Radiology | DX: F17.210 Nicotine dependence, cigarettes, uncomplicated (principal) | CPT/HCPCS: 71271 ==

== ENCOUNTER 2024-07-13 11:08 | Outpatient (REF) | payer MEDICAID, SELFPAY ==
--- OUTSIDE RECORDS SUMMARY | 2024-07-13 12:25 | XMS_ITS ---
Author Organization [facility] Address [address] [place] [id number] Care Team Providers Care Dental Surgery Doctor Name Role Phone DONNIE DO N.P. Primary Care Provider Mir Romeo [phone] Encounters Encounter Location Date Provider Diagnosis [facility] [address] [place] [id number] 10/09/2023 Mir Sanford Plan Of Treatment No Information Progress Notes * SVETLANA REYESOB:1965 ( 58 yo M)Acc No.[id number]:10/09/2023 Patient:?EMILIANA REYES :1965???Age:58 Y???Sex:Male Address:[address] [place] [id number] * true * Date:? Generated for Emilyi joao/Sandra/eTransmitting on:?07/13/2024 12:25 PM EDT
[2024-07-13 13:02] LABS: MANUAL DIFF FLAG NO
[2024-07-13 13:21] LABS: Basophils Percent Auto 0.3 % (0-2); Hematocrit 46.5 % (42.0-52.0); Hemoglobin 15.4 g/dl (14.0-18.0); Imm Gran Abs Auto 0.02 X10*3/uL (0.00-0.03); Imm Gran Pct Auto 0.3 % (0.0-0.4); Lymphocytes Absolute Auto 2.2 X10*3/uL (1.2-4.9); Lymphocytes Percent Auto 33.6 % (20-40); Mean Corpuscular HGB Conc 33.1 g/dl (31.0-36.0); Mean Corpuscular Hemoglobin 31.5 pg (27.0-33.0); Mean Corpuscular Volume 95.1 fL (80.0-98.0); Mean Platelet Volume 8.7 fL (9.4-12.4); Monocytes Absolute Auto 0.7 X10*3/uL (0.1-1.2); Monocytes Percent Auto 10.7 % (2-11); Neutrophils Absolute Auto 3.6 x10*3/uL (2.0-8.3); Neutrophils Percent Auto 55.1 % (45-73); Platelet Count 142 X10*3/uL (160-400); Red Blood Count 4.89 X10*6/uL (4.60-5.80); Red Cell Distribution Width 13.1 % (11.0-16.0); White Blood Count 6.5 X10*3/uL (4.8-10.8)
[2024-07-13 13:46] LABS: Alanine Aminotransferase 13 U/L (0-40); Albumin Level 4.3 g/dL (3.5-5.0); Alkaline Phosphatase 113 U/L (39-117); Anion Gap 11 (12-20); Aspartate Amino Transferase 22 U/L (5-37); Bilirubin Total 0.6 mg/dL (0.0-1.0); Blood Urea Nitrogen 15 mg/dL (9-16); Calcium 9.3 mg/dL (8.4-10.2); Carbon Dioxide 27 mmol/L (22-29); Chloride 109 mmol/L (96-108); Estimated Glomerular Filt Rate > 60; Glucose Random 87 mg/dL (60-115); Potassium 4.4 mmol/L (3.3-5.1); Sodium 143 mmol/L (135-145); Total Protein 7.4 g/dL (6.5-8.0)
== END 2024-07-13 11:09 | disposition home or self-care (01) ==
LOC: HO.HHCL 11:08
PROVIDERS: Visit Provider Nurse Practitioner Primary Care
DX: D69.6 Thrombocytopenia, unspecified (principal)
CPT/HCPCS: 36415; 80053; 85025